=== PATIENT | female | born 1960 | race Caucasian/White ===

== ENCOUNTER 2018-07-18 06:29 | Emergency (ER) | payer OTHER ==
[2018-07-18] MEDS: ONDANSETRON (ODT) 4 MG TAB ODT (06:55)
[2018-07-18] MEDS: HYDROCODONE/APAP (5/325) TAB PO (06:55)
[2018-07-18] MEDS: IBUPROFEN 800 MG TAB PO (07:09)
[2018-07-18 08:32] LABS: ADD MAN DIFF? NO
[2018-07-18 08:37] LABS: WHITE BLOOD COUNT 7.4 10^3/ul (4.8-10.8)
[2018-07-18 08:37] LABS: BASOPHIL # 0.1 10^3/ul (0.0-0.1); EOSINOPHILS % 0.5 % (0.0-7.0); HEMOGLOBIN 15.2 g/dl (12.0-16.0); LYMPHOCYTES # 2.3 10^3/ul (0.8-2.9); LYMPHOCYTES % 31.1 % (15.0-51.0); MEAN CORPUSCULAR HEMOGLOBIN 30.5 pg (29.0-33.0); MEAN CORPUSCULAR VOLUME 92.2 fl (82.0-101.0); MEAN PLATELET VOLUME 9.8 fl (7.4-10.4); MONOCYTE # 0.5 10^3/ul (0.3-0.9); MONOCYTES % 6.4 % (0.0-11.0); NEUTROPHIL # 4.5 10^3/ul (1.6-7.5); NEUTROPHILS % 60.7 % (39.0-77.0); PLATELET COUNT 258 10^3/UL (140-415); RED BLOOD COUNT 4.99 10^6/ul (4.20-5.40); RED CELL DISTRIBUTION WIDTH 13.2 % (11.5-14.5)
[2018-07-18 08:38] LABS: ADD UMIC NO; UR ASCORBIC ACID NEGATIVE (NEGATIVE); UR BILIRUBIN (Dip) NEGATIVE (NEGATIVE); UR BLOOD (Dip) NEGATIVE (NEGATIVE); UR CLARITY CLEAR (CLEAR); UR COLOR YELLOW (YELLOW); UR GLUCOSE (Dip) NEGATIVE (NEGATIVE); UR KETONES (Dip) 1+ mg/dL (NEGATIVE); UR LEUKOCYTE ESTERASE (Dip) NEGATIVE Leu/ul (NEGATIVE); UR NITRITE (Dip) NEGATIVE (NEGATIVE); UR SPECIFIC GRAVITY (Dip) 1.018 (1.003-1.030); UR TOTAL PROTEIN (Dip) NEGATIVE (NEGATIVE); UR UROBILINOGEN (Dip) 1+ mg/dL (NEGATIVE)
[2018-07-18 08:57] LABS: D-DIMER 405.04 ng/ml (<460)
[2018-07-18 08:58] LABS: ALANINE AMINOTRANSFERASE 13 IU/L (13-69); ALBUMIN/GLOBULIN RATIO 1.35; ALKALINE PHOSPHATASE 94 IU/L (42-121); ANION GAP 12 (5-13); ASPARTATE AMINO TRANSFERASE 28 IU/L (15-46); BILIRUBIN,INDIRECT 0.5 mg/dl (0-1.1); BILIRUBIN,TOTAL 0.5 mg/dl (0.2-1.3); BLOOD UREA NITROGEN 12 mg/dl (7-20); CALCIUM 10.3 mg/dl (8.4-10.2); CARBON DIOXIDE 28 mmol/L (21-31); CHLORIDE 101 mmol/L (97-110); CREATININE 0.72 mg/dl (0.44-1.00); Estimated GFR > 60 mL/min (>60); GLUCOSE 93 mg/dl (70-220); POTASSIUM 3.7 mmol/L (3.5-5.1); SODIUM 141 mmol/L (135-144); TOTAL PROTEIN 8.7 g/dl (6.1-8.1)
[2018-07-18 09:09] LABS: TROPONIN-I < 0.012 ng/ml (0.000-0.120)
[2018-07-18] MEDS: SOD CHLORIDE 0.9% 100 ML (09:54)
[2018-07-18] MEDS: IOHEXOL 100 ML (09:54)
[2018-07-18] MEDS: IOHEXOL 350MG/ML 50 ML BTL (09:54)
== END 2018-07-18 10:55 | disposition home or self-care (01) ==
LOC: FTE 06:29
DX: F17.210 Nicotine dependence, cigarettes, uncomplicated (principal)
CPT/HCPCS: 71045; 71100; 71275; 80053; 81003; 81025; 84484; 85025; 85378; 93005; 99285-25